=== PATIENT | female | born 1990 ===

== ENCOUNTER 2017-02-14 11:22 | Emergency (ER) | payer MEDICAID ==
[2017-02-14 11:28] VITALS: BP 140/73; PULSE 88; RESP 16; TEMP 97; O2SAT 99
--- NOTE | 2017-02-14 11:59 | ED PDOC ---
HPI: Eye Injury/Pain Time Seen by Provider: 02/14/17 11:31 Chief Complaint (Nursing): Eye Problem Chief Complaint (Provider): Eye Problem History Per: Patient History/Exam Limitations: no limitations Onset/Duration Of Symptoms: Days (x2 days) Current Symptoms Are (Timing): Still Present Additional Complaint(s): 26 y/o female presents to the emergency department with a complaint of a right- sided pink eye x2 days. Associated with morning swelling (had resolved since), redness, minimal discharge, and itchiness. Reports it is only located on one eye only (right). Admits she uses 2 week disposable contacts only during the weekends. Patient states she works in a [employer] for todd[employer]. Denies eye pain, blurry vision, cough, sore throat, sneezing, or fever. PMD: Dr. Shaik Winston LOPEZ Past Medical History Reviewed: Historical Data, Nursing Documentation, Vital Signs Vital Signs: Last Vital Signs Temp 97 F L 02/14/17 11:24 Pulse 88 02/14/17 11:24 Resp 16 02/14/17 11:24 BP 140/73 02/14/17 11:24 Pulse Ox 99 02/14/17 11:24 - Medical History PMH: Asthma - Surgical History Surgical History: No Surg Hx - Family History Family History: States: Unknown Family Hx - Social History Current smoker - smoking cessation education provided: Yes (Light Smoker < 10 Cigarettes Daily) Alcohol: Social Drugs: Denies - Immunization History Hx Tetanus Toxoid Vaccination: Yes Hx Influenza Vaccination: Yes Hx Pneumococcal Vaccination: No - Home Medications Home Medications: Ambulatory Orders Medication Instructions Recorded Albuterol HFA [Ventolin HFA 90 2 puff IH QID PRN 12/23/15 mcg/actuation (8 g)] Oxybutynin [Oxybutynin Chloride] 5 mg PO DAILY 12/23/15 Tobramycin 0.3% [Tobrex 0.3% Ophth 2 drop OP QID #1 bottle 12/23/15 Soln] Ofloxacin Ophth 0.3% [Ocuflox 1 drop OD Q4 #1 bottle 02/14/17 Ophth 0.3%] - Allergies Allergies/Adverse Reactions: Allergies Allergy/AdvReac Type Severity Reaction Status Date / Time No Known Allergies Allergy Verified 12/23/15 17:27 Review of Systems ROS Statement: Except As Marked, All Systems Reviewed And Found Negative Constitutional: Negative for: Fever Eyes: Positive for: Redness (Right eye with itchiness and minimal discharge), Other (Right eye swelling (Had resolved since)). Negative for: Pain, Vision Change (Blurry vision) ENT: Negative for: Throat Pain (Sore throat), Other (Sneezing) Respiratory: Negative for: Cough Physical Exam - Reviewed Nursing Documentation Reviewed: Yes Vital Signs Reviewed: Yes - Physical Exam Appears: Positive for: Well (Comfortable), Non-toxic, No Acute Distress Head Exam: Positive for: ATRAUMATIC, NORMAL INSPECTION, NORMOCEPHALIC Skin: Positive for: Normal Color, Warm, Dry Eye Exam: Positive for: EOMI, PERRL, Conjunctival injection (Mild. Erythema of the right eye with minimal discharge. ). Negative for: Periorbital swelling ( no eyelid swelling) Neck: Positive for: Normal, Supple Cardiovascular/Chest: Positive for: Regular Rate, Rhythm. Negative for: Murmur Respiratory: Positive for: Normal Breath Sounds. Negative for: Accessory Muscle Use, Respiratory Distress Neurologic/Psych: Positive for: Alert, Oriented (x3) - ECG O2 Sat by Pulse Oximetry: 99 (RA) Pulse Ox Interpretation: Normal Medical Decision Making Medical Decision Making: Time: 11:31 Initial impression: Right eye conjunctivitis --Evaluation, proper follow-up care, and prescription. Time: 11:45 Patient is medically stable, and requires no further treatment in the ED at this time. Patient will be discharged home with Rx for Ocuflox Ophth 0.3%. Counseling was provided and all questions were answered regarding diagnosis and need for follow up with referred clinics. There is agreement to discharge plan. Return if symptoms persist or worsen. Clinical Impression: Conjunctivitis Scribe Attestation: Documented by Jennifer Hernandez, acting as a scribe for Floyd Calloway MD. Provider Scribe Attestation: All medical record entries made by the Scribe were at my direction and personally dictated by me. I have reviewed the chart and agree that the record accurately reflects my personal performance of the history, physical exam, medical decision making, and the department course for this patient. I have also personally directed, reviewed, and agree with the discharge instructions and disposition. Disposition - Clinical Impression Clinical Impression: Conjunctivitis Counseled Patient/Family Regarding: Diagnosis, Need For Followup, Rx Given - Disposition Referrals: [facility] [place] [Outside] Disposition: Routine/Home Disposition Time: 11:45 Condition: GOOD Additional Instructions: Take your eye drops as instructed. Follow up with your PCP in 2-3 days. Prescriptions: Ofloxacin Ophth 0.3% [Ocuflox Ophth 0.3%] 1 drop OD Q4 #1 bottle Instructions: Conjunctivitis (ED)
== END 2017-02-14 12:13 | disposition home or self-care (01) ==
LOC: H.ER 11:22
DX: H10.9 Unspecified conjunctivitis (principal)